=== PATIENT | male | born 1995 | race Caucasian/White ===

== ENCOUNTER 2017-08-17 20:46 | Inpatient (IN) | payer MEDICAID ==
[2015-06-19 09:33] VITALS: Ht 180.3 cm; Wt 83.9 kg
[~2017-08-17] VITALS: Ht 180.3 cm; Wt 83.9 kg
[~2017-08-17 20:46] MED LIST: ACET-1966 PO; AMOX500T10 PO; ARIP20TA11 PO; BUPR-126 PO; DIPH-740 IM; DIPH-740 PO; HYDR25CA83 PO; IBUP400T13 PO; LORA-1458 IM ONLY; LORA-1458 PO; MINO100C10 PO; MINO100C27 PO; MINO100T8 PO; MULT-1379 PO; OLAN10TA21 PO; OLAN10VI IM; OLAN20TA18 PO; [UNRECOGNIZED DRUG - CODE] XX
[2017-08-17] MEDS ORDERED: MAG HYD/AL HYD/SIMETH 30ML UDC PO PRN (22:05)
[2017-08-17] MEDS ORDERED: ACETAMINOPHEN 325 MG TAB PO PRN (22:05)
[2017-08-17] MEDS ORDERED: diphenhydrAMINE 50 MG/ML VIAL IM PRN (22:10)
[2017-08-17] MEDS ORDERED: OLANZapine 10 MG VIAL IM ONLY PRN (22:10)
[2017-08-17] MEDS ORDERED: LORazepam 2 MG/ML VIAL IM PRN (22:10)
[2017-08-17 22:29] VITALS: BP 122/78
[2017-08-17] MEDS: OLANZapine 5 MG TAB PO SCH (22:35)
[2017-08-18] MEDS: MULTIVITAMINS PO SCH (08:12)
[2017-08-18] MEDS: MINOCYCLINE HCL 100 MG CAP PO SCH (08:12)
[2017-08-18 10:10] VITALS: BP 119/66
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
--- NOTE | 2017-08-18 17:39 | HISTORY AND PHYSICAL ---
DATE OF ADMISSION: 08/18/2017 PRESENTING PROBLEM/CHIEF COMPLAINT Patient emergency detained after destroying property in his grandmother's home. HISTORY OF PRESENT ILLNESS This is a fairly well-known 22-year-old male who was notably just recently on the unit under similar circumstances from August 07 to August 10, 2017. Patient is living under the care of his grandmother and his mother at home. Patient at that time during that admission was exhibiting threatening behavior toward his caretakers. Patient was brought in voluntarily, escorted by police. Patient admitted, discharged back to home. Upon returning home patient continued to resume with his mother and his grandmother until police were summoned again to the patient's home by the grandmother, after patient engaging in destruction of property within the home. Patient again voluntarily escorted by police to the [facility] Room where he was evaluated, apparently in a state of psychosis and brought to Behavioral Health. Patient has a recent history of being diagnosed with borderline personality disorder and schizoaffective disorder. Patient's grandmother reports on the phone that he has not been taking his medications. Patient agrees to this, which included Zyprexa 20 mg p.o. at bedtime. At this time Behavioral Health staff were notified that patient would no longer be welcome in the home and patient is unable to care for himself independently. We will go forward with mental health hearing at this point to likely commit patient to [facility] if other suitable forms of placement cannot be found. Patient himself unable to give any current symptomatology other than stating that he was "partying" at home. Patient denying any other symptoms of illness currently. MENTAL HEALTH HISTORY, FAMILY PSYCHIATRIC HISTORY, MEDICAL, SOCIAL, LEGAL HISTORY AND SUBSTANCE ABUSE HISTORY Please see previous H and P on August 07, 2017 and other electronic records. PHYSICAL EXAMINATION GENERAL: Please see emergency room note. Notable for a 22-year-old male exhibiting bizarre behaviors in the emergency room, in no acute medical distress. VITAL SIGNS: At the time of admission, temperature 98.8, pulse 96, respiratory rate 20, blood pressure 136/74 and pulse oximetry 93 on room air. LABORATORY DATA CBC overall unremarkable. Chemistry panel unremarkable. TSH 1.32. Urinalysis notable for urobilinogen present. Toxicology screen negative for substances of abuse, and a nondetectable serum alcohol level. MENTAL STATUS EXAMINATION GENERAL APPEARANCE, BEHAVIOR AND ATTITUDE: This is a somewhat disheveled- appearing 22-year-old male. Psychomotor retardation evident during time of initial interview, turning later into psychomotor activation. Patient pacing, seen doing rocking behaviors, making poor eye contact. No periods of tearfulness. SPEECH: Poverty of speech noted. MOOD: Unable to fully describe. AFFECT: Minimally constricted. THOUGHT PROCESSES: No gross loose associations or flight of ideas could be elicited. THOUGHT CONTENT: Patient potentially suffering from auditory and/or visual hallucinations. Ideas of reference and thought broadcastings remain unknown. Delusions likely. Patient adamantly denying suicidal or homicidal ideation. SENSORIUM: Did appear clear. COGNITION: Alert and oriented to person, place, time, mostly to situation. MEMORY: Immediate, recent and remote estimated grossly intact, based on previous histories. INTELLIGENCE: Documented in the past as average to slightly below based on psychological testing done on previous admission. INSIGHT AND JUDGMENT: Considered grossly limited. Patient unable to care for self. ASSESSMENT This is a 22-year-old male who was recently on the unit under somewhat similar circumstances. Patient was given the opportunity to return home, where he continued to destroy propery. Patient now will not be allowed to return home. We will go forward with hearing at this time. Patient has been on multiple medications, inability to remain on medications left to his own accord. Will continue to address. DIAGNOSES PER DSM-V Borderline personality disorder as primary diagnosis. Schizoaffective disorder, bipolar type. Limitations of illness. Inability to care for self. PLAN 1. Admit to the unit. 2. Necessary precautions to be implemented. 3. Patient will participate in individual and group therapy to the best of his ability. 4. Medications to be administered. We will restart Zyprexa at this time. 5. Collateral information to be obtained. 6. Estimated length of stay unknown. Patient will likely be a candidate for placement in [facility]. [facility]
[2017-08-18 18:48] VITALS: BP 138/77
[2017-08-18] MEDS: OLANZapine 5 MG TAB PO SCH (19:21)
[2017-08-19 05:42] VITALS: BP 109/62
[2017-08-19] MEDS: MULTIVITAMINS PO SCH (08:17)
[2017-08-19] MEDS: MINOCYCLINE HCL 100 MG CAP PO SCH (08:17)
--- NOTE | 2017-08-19 10:55 | BHS Progress Note ---
[facility] - Subjective Progress Notes Subjective Patient noted to be rocking in a chair this morning. Mood unable to adequately describe. Patient appears to be responding to internal stimuli, with some laughter that appears out of nowhere. Appetite and sleep appear intact, will increase zyprexa tonight. Patient does continue to mention "voices" but unable to comment on content. Will have hearing today for 10 day extension. Patient no longer able to return home due to behaviors, and unable to care for self. Suicidal Ideation: None Homicidal Ideation: None [facility] - Objective Physical Exam Vital Signs Vital Signs Date Time Temp Pulse Resp B/P (MAP) Pulse Ox O2 Delivery O2 Flow Rate FiO2 08/19/17 05:42 98.0 42 15 109/62 (78) 96 Room Air Muscle Strength and Tone: WNL Gait and Station: Steady [facility] Medications Reviewed: Side Effects, Benefits of Medication, Risks Allergies Reviewed: Yes Mental Status Exam General Appearance: Casual, Well Groomed, No Good Eye Contact, Cooperative, Polite, Good Interaction, Unkept, No Tearful, Psychomotor Agitation (rocking behaviors), No Psychomotor Retardation, Bizarre Mannerisms, No Tics Speech: Clear, Spontaneous, Normal Rate, Normal Rhythm, Normal Volume, Normal Tone Mood: Other (Seems energized, paces around his bed or rocks in chair.) Affect: Flat, Withdrawn Thought Process: Goal Directed ("I am ready to go to the [facility] if that 's where everyone thinks they want to send me."), No Loose Associations, No Flight of Ideas Thought Content: No Suicidal Ideation, No Homicidal Ideation, Delusions (likely ), Auditory Halllucinations (ongoing), No Visual Hallucinations (Denies), No Thought Broadcasting, No Obsessions, No Compulsions Sensorium: Clear Cognition: Alert & Oriented-Person, Alert & Oriented-Place, Alert & Oriented- Time, No Ajhfg-Nmdntfzl-Vyikeegcl (partially) Memory: Immediate, Recent, Remote Intelligence: Average Insight Judgment: Poor (limited by illness) [facility] Assessment and Plan [id number] Encounter Date: Aug 19, 2017 Awck-tj-Fuay Encounter Time: 10:00 [facility] Plan: Necessary Precautions, Individual/Group Therapy, Admin/Titrate Meds, Educate Patient Tobacco Medications: Not Appropriate Condition Problems: (1) Schizoaffective disorder Status: Chronic (2) Personality disorder, unspecified Status: Chronic Assessment & Plan: likely cluster B and A. Condition 1. hearing today. 2. increase zyprexa to 15mg QHS. Problem Qualifiers (1) Schizoaffective disorder: Schizoaffective disorder type: bipolar Qualified Codes: F25.0 - Schizoaffective disorder, bipolar type NICHOLAS FERRARO MD Aug 19, 2017 10:55
[2017-08-19] MEDS ORDERED: WATER STERILE 10 ML VIAL IVP PRN (11:40)
[2017-08-19 14:23] VITALS: BP 133/80
[2017-08-19] MEDS: DOCUSATE SODIUM 100 MG CAP PO SCH (21:02)
[2017-08-19] MEDS: OLANZapine 5 MG TAB PO SCH (21:02)
[2017-08-19 23:20] VITALS: BP 141/95
[2017-08-20] MEDS: MINOCYCLINE HCL 100 MG CAP PO SCH (08:06)
[2017-08-20] MEDS: DOCUSATE SODIUM 100 MG CAP PO SCH ×2 (08:06→21:23)
[2017-08-20] MEDS: OMEGA-3 500 MG CAP PO SCH (08:07)
--- NOTE | 2017-08-20 08:59 | BHS Progress Note ---
[facility] - Subjective Progress Notes Subjective Patient continues rocking behavior in room, but remains mostly cooperative today , Patient reporting some potentially improved sleep on increased dose of zyprexa at night, will continue treatment, and encourage patient to take an active role in his treatment, Appetite good, no other concerns. Will continue same medications. Suicidal Ideation: None Homicidal Ideation: None [facility] - Objective Physical Exam Vital Signs Vital Signs Date Time Temp Pulse Resp B/P (MAP) Pulse Ox O2 Delivery O2 Flow Rate FiO2 08/19/17 23:20 98.5 95 141/95 (110) 94 Room Air 08/19/17 05:42 15 Muscle Strength and Tone: WNL Gait and Station: Steady [facility] Medications Reviewed: Side Effects, Benefits of Medication, Risks Allergies Reviewed: Yes Mental Status Exam General Appearance: Casual, Well Groomed, No Good Eye Contact, Cooperative, Polite, Good Interaction, Unkept, No Tearful, Psychomotor Agitation (rocking behaviors), No Psychomotor Retardation, Bizarre Mannerisms, No Tics Speech: Clear, Spontaneous, Normal Rate, Normal Rhythm, Normal Volume, Normal Tone Mood: Other (Seems energized, paces around his bed or rocks in chair.) Affect: Flat, Withdrawn Thought Process: Goal Directed ("I am ready to go to the [facility] if that 's where everyone thinks they want to send me."), No Loose Associations, No Flight of Ideas Thought Content: No Suicidal Ideation, No Homicidal Ideation, Delusions (likely ), Auditory Halllucinations (ongoing), No Visual Hallucinations (Denies), No Thought Broadcasting, No Obsessions, No Compulsions Sensorium: Clear Cognition: Alert & Oriented-Person, Alert & Oriented-Place, Alert & Oriented- Time, No Jwxpr-Cvzormml-Rhxrvqfxm (partially) Memory: Immediate, Recent, Remote Intelligence: Average Insight Judgment: Poor (limited by illness) [facility] Assessment and Plan Xefe-oj-Muiy Encounter Date: Aug 20, 2017 Zrdy-pd-Tzoi Encounter Time: 08:40 [facility] Plan: Necessary Precautions, Individual/Group Therapy, Admin/Titrate Meds, Educate Patient Tobacco Medications: Not Appropriate Condition Problems: (1) Schizoaffective disorder Status: Chronic (2) Personality disorder, unspecified Status: Chronic Assessment & Plan: likely cluster B and A. Condition 1. continue treatment. 2. no medication changes today. Problem Qualifiers (1) Schizoaffective disorder: Schizoaffective disorder type: bipolar Qualified Codes: F25.0 - Schizoaffective disorder, bipolar type NICHOLAS FERRARO MD Aug 20, 2017 08:59
[2017-08-20 13:05] VITALS: BP 110/75
[2017-08-20] MEDS: OLANZapine 5 MG TAB PO SCH (21:00)
[2017-08-21 00:17] VITALS: BP 127/87
[2017-08-21] MEDS: MINOCYCLINE HCL 100 MG CAP PO SCH (08:42)
[2017-08-21] MEDS: DOCUSATE SODIUM 100 MG CAP PO SCH ×2 (08:42→21:15)
[2017-08-21] MEDS: OMEGA-3 500 MG CAP PO SCH (08:42)
[2017-08-21 12:25] VITALS: BP 136/89
--- NOTE | 2017-08-21 14:49 | BHS Progress Note ---
[facility] - Subjective Progress Notes Subjective Pt seen in Unit C with team. Pt continues his rocking much of the time while awake. His affect is flat. He is cooperative, no aggression yesterday or today. Pt denies c/o's. He slept well last night, appetite is good. No EPS noted. Pt denies AH but he does seem internally preoccupied at times, also extremely withdrawn, does not initiate interaction with others, does not make spontaneous effort to self-care. Needs high level of support/supervision to complete ADL's. Suicidal Ideation: None Homicidal Ideation: None [facility] - Objective Physical Exam Vital Signs Vital Signs 08/21/17 12:25 Temp 99.9 Pulse 74 Resp 16 B/P (MAP) 136/89 (105) Pulse Ox 96 O2 Delivery Room Air Muscle Strength and Tone: WNL Gait and Station: Steady [facility] Medications Reviewed: Side Effects, Benefits of Medication, Risks Allergies Reviewed: Yes Mental Status Exam General Appearance: Casual, Cooperative, Unkept, No Tearful, Psychomotor Agitation (rocking behaviors), No Psychomotor Retardation, No Tics Speech: Clear, Spontaneous, Normal Rate, Normal Rhythm, Normal Volume Mood: Dysthmic/Depressed Affect: Flat, Withdrawn Thought Process: Organized Thought Content: No Suicidal Ideation, No Homicidal Ideation, Delusions (likely ), Auditory Halllucinations (likely), No Visual Hallucinations (Denies), No Thought Broadcasting, No Obsessions, No Compulsions Sensorium: Clear Cognition: Alert & Oriented-Person, Alert & Oriented-Place, Alert & Oriented- Time, Yfqgl-Bojmremy-Lgqengvce Memory: Immediate, Recent, Remote Intelligence: Average Insight Judgment: Poor (limited by illness) [facility] Assessment and Plan Acpt-en-Qagc Encounter Date: Aug 21, 2017 Dzim-gy-Oqyf Encounter Time: 10:03 [facility] Plan: Necessary Precautions, Individual/Group Therapy, Admin/Titrate Meds, Educate Patient Tobacco Medications: Not Appropriate Condition Problems: (1) Schizoaffective disorder Status: Chronic Assessment & Plan: Continue zyprexa 15 mg. Needs detention supervised placement after [facility]. Problem Qualifiers (1) Schizoaffective disorder: Schizoaffective disorder type: bipolar Qualified Codes: F25.0 - Schizoaffective disorder, bipolar type JACOBY PLUMMER MD Aug 21, 2017 14:49
[2017-08-21 17:00] VITALS: BP 129/73
[2017-08-21] MEDS: OLANZapine 5 MG TAB PO SCH (21:00)
[2017-08-22] MEDS ORDERED: LORazepam 1 MG TAB PO PRN (00:10)
[2017-08-22 01:06] VITALS: BP 130/82
[2017-08-22] MEDS: OMEGA-3 500 MG CAP PO SCH (08:08)
[2017-08-22] MEDS: DOCUSATE SODIUM 100 MG CAP PO SCH ×2 (08:08→21:19)
[2017-08-22] MEDS: MINOCYCLINE HCL 100 MG CAP PO SCH (08:08)
[2017-08-22 12:36] VITALS: BP 128/80
--- NOTE | 2017-08-22 16:24 | BHS Progress Note ---
[facility] - Subjective Progress Notes Subjective Pt seen in unit C. He continues his rocking behavior, is more energetic today, pacing about, laughing loudly to himself when he is alone in the room. Denies AH to me but is clearly internally preoccupied, very poor-to-no eye contact. Deneis oversedation. No EPS noted. Will increase zyprexa to 20 mg for continued psychosis-- this was his previous dose. Suicidal Ideation: None Homicidal Ideation: None [facility] - Objective Physical Exam Vital Signs Vital Signs 08/22/17 12:36 Temp 98.5 Pulse 61 Resp 16 B/P (MAP) 128/80 (96) Pulse Ox 97 O2 Delivery Room Air Muscle Strength and Tone: WNL Gait and Station: Steady [facility] Medications Reviewed: Side Effects, Benefits of Medication, Risks Allergies Reviewed: Yes Mental Status Exam General Appearance: Cooperative, Unkept, No Tearful, Psychomotor Agitation ( rocking behaviors), No Psychomotor Retardation, No Tics Speech: Clear, Spontaneous, Normal Rhythm, Normal Volume Mood: Other (labile) Affect: Flat, Withdrawn, Other (labile-- flat alternating with bizarre laughter ) Thought Process: Other (tangential) Thought Content: No Suicidal Ideation, No Homicidal Ideation, Delusions, Auditory Halllucinations (internally preoccupied, laughing to himself), No Visual Hallucinations (Denies), No Thought Broadcasting, No Obsessions, No Compulsions Sensorium: Clear Cognition: Alert & Oriented-Person, Alert & Oriented-Place, Alert & Oriented- Time, Wjyyk-Fqonyrsm-Kkzrqiuxu Memory: Immediate, Recent, Remote Intelligence: Average Insight Judgment: Poor (limited by illness) [facility] Assessment and Plan Thnr-mx-Ahww Encounter Date: Aug 22, 2017 Mwjc-hn-Rbme Encounter Time: 10:30 [facility] Plan: Necessary Precautions, Individual/Group Therapy, Admin/Titrate Meds, Educate Patient Tobacco Medications: Not Appropriate Condition Problems: (1) Schizoaffective disorder Status: Chronic Problem Qualifiers (1) Schizoaffective disorder: Schizoaffective disorder type: bipolar Qualified Codes: F25.0 - Schizoaffective disorder, bipolar type JACOBY PLUMMER MD Aug 22, 2017 16:24
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
[2017-08-22 18:20] VITALS: BP 134/86
[2017-08-22] MEDS: OLANZapine 5 MG TAB PO SCH (21:00)
[2017-08-22 21:23] VITALS: BP 132/83
[2017-08-23] MEDS: OMEGA-3 500 MG CAP PO SCH (08:16)
[2017-08-23] MEDS: MINOCYCLINE HCL 100 MG CAP PO SCH (08:16)
[2017-08-23] MEDS: DOCUSATE SODIUM 100 MG CAP PO SCH ×2 (08:16→20:31)
--- NOTE | 2017-08-23 09:13 | BHS Progress Note ---
[facility] - Subjective Progress Notes Subjective Patient's family contacted this AM, at 0845 Patient continues to refrain from violent or destructive behavior on the unit. Slept well on increased zyprexa at night. appetite good, Patient up and active early this AM, and does not appear to be over-medicated on current dosing. Will schedule hearing this week , for commitment to [facility]. Patient cannot return home to live with his grandmother, and mother, and does not possess the ability to live independently. Will continue same medications for now. Suicidal Ideation: None Homicidal Ideation: None [facility] - Objective Physical Exam Vital Signs Vital Signs Date Time Temp Pulse Resp B/P (MAP) Pulse Ox O2 Delivery O2 Flow Rate FiO2 08/22/17 21:23 98.7 79 132/83 (99) 98 Room Air 08/22/17 18:20 16 Muscle Strength and Tone: WNL Gait and Station: Steady [facility] Medications Reviewed: Side Effects, Benefits of Medication, Risks Allergies Reviewed: Yes Mental Status Exam General Appearance: Cooperative, Unkept, No Tearful, Psychomotor Agitation ( rocking behaviors), No Psychomotor Retardation, Bizarre Mannerisms (at times), No Tics Speech: Clear, Spontaneous, Normal Rhythm, Normal Volume, Delayed (delayed response at times) Mood: Other (labile, unable to fully express mood.) Affect: Flat, Withdrawn, Other (labile-- flat alternating with bizarre laughter ) Thought Process: Other (tangential) Thought Content: No Suicidal Ideation, No Homicidal Ideation, Delusions, Auditory Halllucinations (internally preoccupied, laughing to himself), No Visual Hallucinations (Denies), No Thought Broadcasting, No Obsessions, No Compulsions Sensorium: Clear Cognition: Alert & Oriented-Person, Alert & Oriented-Place, Alert & Oriented- Time, Wrdse-Llcupahg-Xvbjkxbxz Memory: Immediate, Recent, Remote Intelligence: Average (to slightly below) Insight Judgment: Poor (grossly limited by illness) [facility] Assessment and Plan Ghuw-xi-Lvhj Encounter Date: Aug 23, 2017 Ujxu-uk-Zrym Encounter Time: 08:45 [facility] Plan: Necessary Precautions, Individual/Group Therapy, Admin/Titrate Meds, Educate Patient Tobacco Medications: Not Appropriate Condition Problems: (1) Schizoaffective disorder Status: Chronic (2) Personality disorder, unspecified Status: Chronic Assessment & Plan: likely cluster B and A. Condition 1. continue treatment. 2. no medication changes. 3. hearing this week. Problem Qualifiers (1) Schizoaffective disorder: Schizoaffective disorder type: bipolar Qualified Codes: F25.0 - Schizoaffective disorder, bipolar type NICHOLAS FERRARO MD Aug 23, 2017 09:13
[2017-08-23 12:35] VITALS: BP 119/61
[2017-08-23] MEDS: OLANZapine 5 MG TAB PO SCH (20:31)
[2017-08-23 21:14] VITALS: BP 115/61
[2017-08-24 05:36] VITALS: BP 113/54
[2017-08-24] MEDS: MINOCYCLINE HCL 100 MG CAP PO SCH (08:04)
[2017-08-24] MEDS: OMEGA-3 500 MG CAP PO SCH (08:04)
[2017-08-24] MEDS: DOCUSATE SODIUM 100 MG CAP PO SCH ×2 (08:04→21:06)
--- NOTE | 2017-08-24 11:48 | BHS Progress Note ---
S - Subjective Progress Notes Subjective Patient seen in room this AM, notably still cleaner floor of room as compared to yesterday, which had snack food spread about room. Patient making poor eye contact but denies any concerns, does not appear to be overmedicated, and was noted to have slept well. Will continue same medications today,, as we await commitment hearing, patient remains cooperative, and we will ponder having patient move around more in the general population. Patient has no complaints today. Rocking behavior continues. Suicidal Ideation: None Homicidal Ideation: None [facility] - Objective Physical Exam Vital Signs Vital Signs Date Time Temp Pulse Resp B/P (MAP) Pulse Ox O2 Delivery O2 Flow Rate FiO2 08/24/17 05:36 98.0 42 15 113/54 (73) 96 Room Air Muscle Strength and Tone: WNL Gait and Station: Steady [facility] Medications Reviewed: Side Effects, Benefits of Medication, Risks Allergies Reviewed: Yes Mental Status Exam General Appearance: No Good Eye Contact, Cooperative, Polite, Unkept, No Tearful, Psychomotor Agitation (rocking behaviors), No Psychomotor Retardation, Bizarre Mannerisms (at times), No Tics Speech: Clear, Spontaneous, Normal Rhythm, Normal Volume, Delayed (delayed response at times) Mood: Other (labile, unable to fully express mood.) Affect: Flat, Withdrawn, Other (labile-- flat alternating with bizarre laughter ) Thought Process: Other (tangential) Thought Content: No Suicidal Ideation, No Homicidal Ideation, Delusions, Auditory Halllucinations (internally preoccupied, laughing to himself), No Visual Hallucinations (Denies), No Thought Broadcasting, No Obsessions, No Compulsions Sensorium: Clear Cognition: Alert & Oriented-Person, Alert & Oriented-Place, Alert & Oriented- Time, Vzcju-Dqlaorcj-Krfpdqlop Memory: Immediate, Recent, Remote Intelligence: Average (to slightly below) Insight Judgment: Poor (grossly limited by illness) [facility] Assessment and Plan Yjjx-xi-[id number] Encounter Date: Aug 24, 2017 Fxcx-je-Dyuo Encounter Time: 11:00 [facility] Plan: Necessary Precautions, Individual/Group Therapy, Admin/Titrate Meds, Educate Patient Tobacco Medications: Not Appropriate Condition Problems: (1) Schizoaffective disorder Status: Chronic (2) Personality disorder, unspecified Status: Chronic Assessment & Plan: likely cluster B and A. Condition 1. will continue treatment. 2. no medication changes today. 3. commitment hearing on Wednesday Problem Qualifiers (1) Schizoaffective disorder: Schizoaffective disorder type: bipolar Qualified Codes: F25.0 - Schizoaffective disorder, bipolar type NICHOLAS FERRARO MD Aug 24, 2017 11:48
[2017-08-24 20:32] VITALS: BP 134/90
[2017-08-24] MEDS: OLANZapine 5 MG TAB PO SCH (21:00)
[2017-08-25 05:55] VITALS: BP 99/50
[2017-08-25] MEDS: OMEGA-3 500 MG CAP PO SCH (08:38)
[2017-08-25] MEDS: MINOCYCLINE HCL 100 MG CAP PO SCH (08:38)
[2017-08-25] MEDS: DOCUSATE SODIUM 100 MG CAP PO SCH ×2 (08:38→20:43)
--- NOTE | 2017-08-25 09:01 | BHS Progress Note ---
[facility] - Subjective Progress Notes Subjective Patient continues to be cooperative on the unit, notably directing some frustration at his Mother on last visit. Patient denies any problems today, will continue same medications. Appetite and sleep good, no other concerns today. Suicidal Ideation: None Homicidal Ideation: None [facility] - Objective Physical Exam Vital Signs Vital Signs Date Time Temp Pulse Resp B/P (MAP) Pulse Ox O2 Delivery O2 Flow Rate FiO2 08/25/17 05:55 97.5 51 15 99/50 (66) 96 Room Air Muscle Strength and Tone: WNL Gait and Station: Steady [facility] Medications Reviewed: Side Effects, Benefits of Medication, Risks Allergies Reviewed: Yes Mental Status Exam General Appearance: No Good Eye Contact, Cooperative, Unkept, No Tearful, Psychomotor Agitation (rocking behaviors), No Psychomotor Retardation, No Tics Speech: Clear, Spontaneous, Normal Rhythm, Normal Volume, Delayed (at times) Mood: Other (labile) Affect: Flat, Withdrawn, Other (labile-- flat alternating with bizarre laughter at times) Thought Process: Other (tangential) Thought Content: No Suicidal Ideation, No Homicidal Ideation, Delusions, Auditory Halllucinations (internally preoccupied, laughing to himself), No Visual Hallucinations (Denies), No Thought Broadcasting, No Obsessions, No Compulsions Sensorium: Clear Cognition: Alert & Oriented-Person, Alert & Oriented-Place, Alert & Oriented- Time, Joacz-Aleizntc-Pgvmcixbt Memory: Immediate, Recent, Remote Intelligence: Average Insight Judgment: Poor (limited by illness) [facility] Assessment and Plan Bcrj-cw-Ooik Encounter Date: Aug 25, 2017 Yudm-bb-Wkqa Encounter Time: 08:40 [facility] Plan: Necessary Precautions, Individual/Group Therapy, Admin/Titrate Meds, Educate Patient Tobacco Medications: Not Appropriate Condition Problems: (1) Schizoaffective disorder Status: Chronic (2) Personality disorder, unspecified Status: Chronic Assessment & Plan: likely cluster B and A. Condition 1. continue treatment. 2. hearing on Wednesday for commitment to [facility] Problem Qualifiers (1) Schizoaffective disorder: Schizoaffective disorder type: bipolar Qualified Codes: F25.0 - Schizoaffective disorder, bipolar type NICHOLAS FERRARO MD Aug 25, 2017 09:01
[2017-08-25] MEDS: OLANZapine 5 MG TAB PO SCH (20:43)
[2017-08-25 21:54] VITALS: BP 143/80
[2017-08-26 05:50] VITALS: BP 96/59
[2017-08-26] MEDS: OMEGA-3 500 MG CAP PO SCH (08:39)
[2017-08-26] MEDS: DOCUSATE SODIUM 100 MG CAP PO SCH ×2 (08:39→21:00)
[2017-08-26] MEDS: MINOCYCLINE HCL 100 MG CAP PO SCH (08:39)
--- NOTE | 2017-08-26 13:30 | BHS Progress Note ---
[facility] - Subjective Progress Notes Subjective Patient demonstrating more difficulty with getting up and out of bed this AM. Patient mostly cooperative and eventually getting up and remaining out of bed with some strong encouragement. Patient unable or refusing to give any details of symptomatology, continues to rock, and sporadic verbalizations continue, some minimal fist pounding as well. Appears to sleep well, appetite good. Suicidal Ideation: None Homicidal Ideation: None [facility] - Objective Physical Exam Vital Signs Vital Signs Date Time Temp Pulse Resp B/P (MAP) Pulse Ox O2 Delivery O2 Flow Rate FiO2 08/26/17 05:50 97.6 48 15 96/59 (71) 96 Room Air Muscle Strength and Tone: WNL Gait and Station: Steady [facility] Medications Reviewed: Side Effects, Benefits of Medication, Risks Allergies Reviewed: Yes Mental Status Exam General Appearance: No Good Eye Contact, Cooperative, Unkept, No Tearful, Psychomotor Agitation (rocking behaviors), No Psychomotor Retardation, No Tics Speech: Clear, Spontaneous, Normal Rhythm, Normal Volume, Delayed (at times) Mood: Other (labile) Affect: Flat, Withdrawn, Other (labile-- flat alternating with bizarre laughter at times) Thought Process: Other (tangential) Thought Content: No Suicidal Ideation, No Homicidal Ideation, Delusions, Auditory Halllucinations (internally preoccupied, laughing to himself), No Visual Hallucinations (Denies), No Thought Broadcasting, No Obsessions, No Compulsions Sensorium: Clear Cognition: Alert & Oriented-Person, Alert & Oriented-Place, Alert & Oriented- Time, Zpeah-Dhuohcyv-Mkmbwlvgi Memory: Immediate, Recent, Remote Intelligence: Average Insight Judgment: Poor (limited by illness) [facility] Assessment and Plan Zzec-py-Ekze Encounter Date: Aug 26, 2017 Vdtr-ja-Fjfk Encounter Time: 10:00 [facility] Plan: Necessary Precautions, Individual/Group Therapy, Admin/Titrate Meds, Educate Patient Tobacco Medications: Not Appropriate Condition Problems: (1) Schizoaffective disorder Status: Chronic (2) Personality disorder, unspecified Status: Chronic Condition 1. continue treatment. 2. no medication changes. 3. hearing tomorrow. Problem Qualifiers (1) Schizoaffective disorder: Schizoaffective disorder type: bipolar Qualified Codes: F25.0 - Schizoaffective disorder, bipolar type NICHOLAS FERRARO MD Aug 26, 2017 13:30
[2017-08-26 14:01] VITALS: BP 128/87
[2017-08-26] MEDS: OLANZapine 5 MG TAB PO SCH (21:00)
[2017-08-26 21:46] VITALS: BP 126/84
[2017-08-26] MEDS ORDERED: LORazepam 1 MG TAB PO ONE (22:25)
[2017-08-26] MEDS ORDERED: diphenhydrAMINE 25 MG CAP PO ONE (22:25)
[2017-08-26] MEDS ORDERED: OLANZapine 5 MG TAB PO ONE (22:25)
[2017-08-27] MEDS ORDERED: OLANZapine ZYDIS ODT 5MG TABDP ONE (07:54)
[2017-08-27] MEDS ORDERED: OLANZapine ZYDIS ODT 5MG TABDP PO ONE (07:55)
[2017-08-27] MEDS: MINOCYCLINE HCL 100 MG CAP PO SCH (08:00)
[2017-08-27] MEDS: OMEGA-3 500 MG CAP PO SCH (08:00)
[2017-08-27] MEDS: DOCUSATE SODIUM 100 MG CAP PO SCH ×2 (08:00→21:47)
[2017-08-27 08:24] LABS: PLATELET COUNT, AUTOMATED 196 K/uL (150-450)
--- NOTE | 2017-08-27 08:35 | EKG ---
FACILITY: PATIENT NAME: ANTOINETTE WALLACE : [id number] MR: [id number] V: [id number] EXAM DATE: ORDERING PHYSICIAN: NICHOLAS FERRARO TECHNOLOGIST: Test Reason : QT Blood Pressure : / mmHG Vent. Rate : 071 BPM Atrial Rate : 071 BPM P-R Int : 152 ms QRS Dur : 108 ms QT Int : 372 ms P-R-T Axes : 059 062 050 degrees QTc Int : 404 ms Normal sinus rhythm with sinus arrhythmia Septal infarct , age undetermined Abnormal ECG When compared with ECG of 18-JUN-2015 14:30, Previous ECG has undetermined rhythm, needs review Confirmed by EDGARDO LAO ([id number]) on 08/27/2017 1:52:49 PM Referred By: RONAN Confirmed By:EDGARDO LAO
[2017-08-27 12:25] VITALS: BP 133/79
--- NOTE | 2017-08-27 15:07 | BHS Progress Note ---
[facility] - Subjective Progress Notes Subjective Pt seen in Unit C at 11 am, spoke with pt's grandmother during treatment team, and attended mental health court to testify for 10 day hearing. Pt was committed to the [facility]. Pt declined the opportunity to attend his mental health court hearing. Last night pt became aggressive in his room and kicked a hole in the wall, today telling me he was mad at the voices for saying "something that was not true." He says he thinks his voices are worse now than when he came in. Continues to be isolative, poor eye contact, rocking, responding to internal stimuli, laughing hysterically for unknown reason at times. Spoke with pt and also with his grandmother about trying lithium augmentation for persistent psychosis-- pt and grandmother agree to lithium trial. He understands he will need periodic blood tests to monitor kidney and thyroid function and lithium level. Suicidal Ideation: None Homicidal Ideation: None [facility] - Objective Physical Exam Vital Signs Vital Signs 08/27/17 12:25 Temp 99.4 Pulse 108 Resp 16 B/P (MAP) 133/79 (97) Pulse Ox 97 O2 Delivery Room Air Muscle Strength and Tone: WNL Gait and Station: Steady [facility] Medications Reviewed: Side Effects, Benefits of Medication, Risks Allergies Reviewed: Yes Mental Status Exam General Appearance: No Good Eye Contact, Unkept, No Tearful, Psychomotor Agitation (rocking behaviors), No Psychomotor Retardation, No Tics Speech: Clear, Spontaneous, Normal Rhythm, Normal Volume, Delayed (at times) Mood: Other (labile) Affect: Flat, Withdrawn, Other (labile-- flat alternating with bizarre laughter at times) Thought Process: Other (tangential) Thought Content: No Suicidal Ideation, No Homicidal Ideation, Delusions, Auditory Halllucinations (internally preoccupied, laughing to himself), No Visual Hallucinations (Denies), No Thought Broadcasting, No Obsessions, No Compulsions Sensorium: Clear Cognition: Alert & Oriented-Person, Alert & Oriented-Place, Alert & Oriented- Time, Fmaxz-Zvaoczxa-Pqcvjdoyg Memory: Immediate, Recent, Remote Intelligence: Average Insight Judgment: Poor (limited by illness) Result Diagram: 08/27/17 0749 08/27/[address] [facility] Assessment and Plan Koic-bu-Hbct Encounter Date: Aug 27, 2017 Zwwe-sa-Owfy Encounter Time: 11:00 [facility] Plan: Necessary Precautions, Individual/Group Therapy, Admin/Titrate Meds, Educate Patient Tobacco Medications: Not Appropriate Condition Problems: (1) Schizoaffective disorder Status: Chronic Problem Qualifiers (1) Schizoaffective disorder: Schizoaffective disorder type: bipolar Qualified Codes: F25.0 - Schizoaffective disorder, bipolar type JACOBY PLUMMER MD Aug 27, 2017 15:07
[2017-08-27 18:10] VITALS: BP 139/83
[2017-08-27] MEDS: OLANZapine 5 MG TAB PO SCH (21:45)
[2017-08-27] MEDS: LITHIUM CARBONATE 300 MG TABCR PO SCH (21:47)
[2017-08-28 06:35] VITALS: BP 98/61
[2017-08-28] MEDS: OMEGA-3 500 MG CAP PO SCH (07:49)
[2017-08-28] MEDS: DOCUSATE SODIUM 100 MG CAP PO SCH ×2 (07:49→20:56)
[2017-08-28] MEDS: MINOCYCLINE HCL 100 MG CAP PO SCH (07:49)
--- NOTE | 2017-08-28 08:55 | BHS Progress Note ---
[facility] - Subjective Progress Notes Subjective "Good." Reports slept well. Reports voices always there. Denies command-however they do talk to him. Rates current anger level a 5. Suicidal Ideation: None Homicidal Ideation: None [facility] - Objective Physical Exam Vital Signs vital signs Vital Signs 08/27/17 08/28/17 18:10 06:35 Temp 98.0 Pulse 60 Resp 16 B/P (MAP) 98/61 (73) Pulse Ox 97 O2 Delivery Room Air Muscle Strength and Tone: WNL Gait and Station: Steady [facility] Medications Reviewed: Side Effects, Benefits of Medication, Risks Allergies Reviewed: Yes Mental Status Exam General Appearance: No Good Eye Contact, Unkept, No Tearful, Psychomotor Agitation (rocking behaviors), No Psychomotor Retardation, No Tics Speech: Clear, Spontaneous, Normal Rhythm, Normal Volume, Delayed (at times) Mood: Other (labile) Affect: Flat, Withdrawn, Other (labile-- flat alternating with bizarre laughter at times) Thought Process: Other (tangential) Thought Content: No Suicidal Ideation, No Homicidal Ideation, Delusions, Auditory Halllucinations (internally preoccupied, laughing to himself), No Visual Hallucinations (Denies), No Thought Broadcasting, No Obsessions, No Compulsions Sensorium: Clear Cognition: Alert & Oriented-Person, Alert & Oriented-Place, Alert & Oriented- Time, Bchii-Tbxmjgyx-Ofwabhrgr Memory: Immediate, Recent, Remote Intelligence: Average Insight Judgment: Poor (limited by illness) Result Diagram: 08/27/17 0749 08/27/17 0749 [facility] Assessment and Plan [id number]-[id number] Encounter Date: Aug 28, 2017 Tvbo-dt-Xbyr Encounter Time: 08:20 [facility] Plan: Necessary Precautions, Individual/Group Therapy, Admin/Titrate Meds, Educate Patient Tobacco Medications: Not Appropriate Condition Problems: TOYA CORREIA NP Aug 28, 2017 08:55
[2017-08-28 13:15] VITALS: BP 130/60
[2017-08-28 19:38] VITALS: BP 124/90
[2017-08-28] MEDS: OLANZapine 5 MG TAB PO SCH (20:55)
[2017-08-28] MEDS: LITHIUM CARBONATE 300 MG TABCR PO SCH (20:55)
[2017-08-29 06:31] VITALS: BP 124/70
[2017-08-29] MEDS: DOCUSATE SODIUM 100 MG CAP PO SCH ×2 (08:02→21:00)
[2017-08-29] MEDS: MINOCYCLINE HCL 100 MG CAP PO SCH (08:02)
[2017-08-29] MEDS: OMEGA-3 500 MG CAP PO SCH (08:02)
[2017-08-29 12:10] VITALS: BP 118/80
[2017-08-29 18:45] VITALS: BP 145/101
[2017-08-29] MEDS: LITHIUM CARBONATE 300 MG TABCR PO SCH (21:00)
[2017-08-29] MEDS: OLANZapine 5 MG TAB PO SCH (21:00)
[2017-08-30 05:11] VITALS: BP 113/64
[2017-08-30] MEDS: OMEGA-3 500 MG CAP PO SCH (08:03)
[2017-08-30] MEDS: MINOCYCLINE HCL 100 MG CAP PO SCH (08:03)
[2017-08-30] MEDS: DOCUSATE SODIUM 100 MG CAP PO SCH ×2 (08:03→21:00)
--- NOTE | 2017-08-30 09:11 | BHS Progress Note ---
[facility] - Subjective Progress Notes Subjective Patient remains largely the same throughout the weekend. Nurse reports questioning whether patient cheeked his medications last night and disposed of them. Patient rocking this AM. No further destructive behaviors in the room last 24 hours. Appetite good, no other concerns. Suicidal Ideation: None Homicidal Ideation: None [facility] - Objective Physical Exam Vital Signs Vital Signs Date Time Temp Pulse Resp B/P (MAP) Pulse Ox O2 Delivery O2 Flow Rate FiO2 08/30/17 05:11 98.2 49 15 113/64 (80) 95 Room Air Hematology Test 08/27/17 07:49 Red Blood Count 5.46 M/uL (4.00-5.60) Mean Corpuscular Volume 84.6 fL (80.0-96.0) Mean Corpuscular Hemoglobin 28.7 pg (26.0-33.0) Mean Corpuscular Hemoglobin Concent 33.9 g/dL (32.0-36.0) Red Cell Distribution Width 16.8 % (11.5-14.5) Mean Platelet Volume 8.3 fL (7.2-11.1) Neutrophils (%) (Auto) 41.9 % (39.4-72.5) Lymphocytes (%) (Auto) 46.3 % (17.6-49.6) Monocytes (%) (Auto) 11.5 % (4.1-12.4) Eosinophils (%) (Auto) 0.0 % (0.4-6.7) Basophils (%) (Auto) 0.3 % (0.3-1.4) Nucleated RBC Relative Count (auto) 0.0 /100WBC Neutrophils # (Auto) 2.6 K/uL (2.0-7.4) Lymphocytes # (Auto) 2.8 K/uL (1.3-3.6) Monocytes # (Auto) 0.7 K/uL (0.3-1.0) Eosinophils # (Auto) 0.0 K/uL (0.0-0.5) Basophils # (Auto) 0.0 K/uL (0.0-0.1) Nucleated RBC Absolute Count (auto) 0.00 K/uL Sodium Level 140 mmol/L (137-145) Potassium Level 4.3 mmol/L (3.5-5.0) Chloride Level 105 mmol/L (98-107) Carbon Dioxide Level 28 mmol/L (22-30) Blood Urea Nitrogen 8 mg/dl (9-21) Creatinine 0.90 mg/dl (0.66-1.25) Glomerular Filtration Rate Calc > 60.0 Random Glucose 76 mg/dl (75-110) Calcium Level 9.3 mg/dl (8.4-10.2) Total Bilirubin 0.5 mg/dl (0.2-1.3) Aspartate Amino Transf (AST/SGOT) 23 U/L (0-35) Alanine Aminotransferase (ALT/SGPT) 32 U/L (0-56) Alkaline Phosphatase 87 U/L (0-126) Total Protein 6.4 gm/dl (6.3-8.2) Albumin 3.4 g/dl (3.5-5.0) Chemistry Test 08/27/17 07:49 White Blood Count 6.1 k/uL (4.5-11.0) Red Blood Count 5.46 M/uL (4.00-5.60) Hemoglobin 15.6 g/dL (14.0-18.0) Hematocrit 46.2 % (42.0-52.0) Mean Corpuscular Volume 84.6 fL (80.0-96.0) Mean Corpuscular Hemoglobin 28.7 pg (26.0-33.0) Mean Corpuscular Hemoglobin Concent 33.9 g/dL (32.0-36.0) Red Cell Distribution Width 16.8 % (11.5-14.5) Platelet Count 196 K/uL (150-450) Mean Platelet Volume 8.3 fL (7.2-11.1) Neutrophils (%) (Auto) 41.9 % (39.4-72.5) Lymphocytes (%) (Auto) 46.3 % (17.6-49.6) Monocytes (%) (Auto) 11.5 % (4.1-12.4) Eosinophils (%) (Auto) 0.0 % (0.4-6.7) Basophils (%) (Auto) 0.3 % (0.3-1.4) Nucleated RBC Relative Count (auto) 0.0 /100WBC Neutrophils # (Auto) 2.6 K/uL (2.0-7.4) Lymphocytes # (Auto) 2.8 K/uL (1.3-3.6) Monocytes # (Auto) 0.7 K/uL (0.3-1.0) Eosinophils # (Auto) 0.0 K/uL (0.0-0.5) Basophils # (Auto) 0.0 K/uL (0.0-0.1) Nucleated RBC Absolute Count (auto) 0.00 K/uL Glomerular Filtration Rate Calc > 60.0 Calcium Level 9.3 mg/dl (8.4-10.2) Total Bilirubin 0.5 mg/dl (0.2-1.3) Aspartate Amino Transf (AST/SGOT) 23 U/L (0-35) Alanine Aminotransferase (ALT/SGPT) 32 U/L (0-56) Alkaline Phosphatase 87 U/L (0-126) Total Protein 6.4 gm/dl (6.3-8.2) Albumin 3.4 g/dl (3.5-5.0) Muscle Strength and Tone: WNL Gait and Station: Steady [facility] Medications Reviewed: Side Effects, Benefits of Medication, Risks Allergies Reviewed: Yes Mental Status Exam General Appearance: No Good Eye Contact, Unkept, No Tearful, Psychomotor Agitation (rocking behaviors), No Psychomotor Retardation, No Tics Speech: Clear, Spontaneous, Normal Rhythm, Normal Volume, Delayed (at times) Mood: Other (labile) Affect: Flat, Withdrawn, Other (labile-- flat alternating with bizarre laughter at times) Thought Process: Other (tangential) Thought Content: No Suicidal Ideation, No Homicidal Ideation, Delusions, Auditory Halllucinations (internally preoccupied, laughing to himself), No Visual Hallucinations (Denies), No Thought Broadcasting, No Obsessions, No Compulsions Sensorium: Clear Cognition: Alert & Oriented-Person, Alert & Oriented-Place, Alert & Oriented- Time, Fastj-Vnstyrvu-Kqwtwnjpn Memory: Immediate, Recent, Remote Intelligence: Average Insight Judgment: Poor (limited by illness) Result Diagram: 08/27/17 0749 08/27/17 0749 [facility] Assessment and Plan [id number]-[id number] Encounter Date: Aug 30, 2017 Tcsu-ay-Zzdh Encounter Time: 08:40 [facility] Plan: Necessary Precautions, Individual/Group Therapy, Admin/Titrate Meds, Educate Patient Tobacco Medications: Not Appropriate Condition Problems: (1) Schizoaffective disorder Status: Chronic (2) Personality disorder, unspecified Status: Chronic Condition 1. continue current medication regimen. 2. monitor for cheeking behaviors. Problem Qualifiers (1) Schizoaffective disorder: Schizoaffective disorder type: bipolar Qualified Codes: F25.0 - Schizoaffective disorder, bipolar type NICHOLAS FERRARO MD Aug 30, 2017 09:11
[2017-08-30] MEDS: LITHIUM CARBONATE 300 MG TABCR PO SCH (21:00)
[2017-08-30] MEDS: OLANZapine 5 MG TAB PO SCH (21:00)
[2017-08-30 22:11] VITALS: BP 137/85
[2017-08-31 04:57] VITALS: BP 109/69
[2017-08-31] MEDS: OMEGA-3 500 MG CAP PO SCH ×2 (08:21→08:51)
[2017-08-31] MEDS: DOCUSATE SODIUM 100 MG CAP PO SCH ×3 (08:21→20:48)
[2017-08-31] MEDS: MINOCYCLINE HCL 100 MG CAP PO SCH ×2 (08:21→08:51)
--- NOTE | 2017-08-31 09:11 | BHS Progress Note ---
BHS - Subjective Progress Notes Subjective Patient refusing medications last PM and again this AM. Patient likely was cheeking medication the night before last. Patient exhibiting borderline personality symptoms, and in absence of medications, negative behaviors will likely increase. Patient has damaged wall in room, and was to be transferred to skilled nursing, but apparently skilled nursing has no room. Will continue to work with this patient, to encourage him to resume medications. Appetite okay, variable at times. sleep impaired, do to avoidance of medications. Patient notably cooperative this AM, and able to exit bed and take a shower with minimal prompting. Suicidal Ideation: None Homicidal Ideation: None BHS - Objective Physical Exam Vital Signs Current Medications Medications (Trade) Dose Ordered Sig/Jovi Route PRN Reason Start Time Stop Time Status Last Admin Dose Admin Acetaminophen (Tylenol(*)325 Mg Tab (Or Equiv)) 650 mg Q4H PRN PO HEADACHE 08/17/17 22:05 09/16/17 22:04 Al Hydrox/Mg Hydrox/Simethicone (Maalox(*) 30 ml Udcup (Or Equiv)) 30 ml Q4H PRN PO DYSPEPSIA 08/17/17 22:05 09/16/17 22:04 Multivitamins (Thera-M Enhanced Tab (Or Equiv)) 1 each QDAY PO 08/18/17 09:00 08/19/17 09:15 DC 08/19/17 08:17 Olanzapine (zyPREXA (OR EQUIV)) 10 mg QHS PO 08/17/17 22:35 08/19/17 10:01 DC 08/18/17 19:21 Minocycline HCl (Minocin 100 Mg Cap (Or Equiv)) 100 mg DAILY PO 08/18/17 09:00 09/01/17 08:59 08/31/17 08:21 Diphenhydramine HCl (Benadryl(*) 50 Mg/ml Vial (Or Equiv)) 50 mg Q6H PRN IM SEVERE AGITATION 08/17/17 22:10 09/16/17 22:09 Lorazepam (Ativan(*) 2 Mg/ ml Vial (Or Equiv)) 2 mg Q6H PRN IM SEVER AGITATION 08/17/17 22:10 09/30/17 22:09 Olanzapine (zyPREXA(*) (OR EQUIV)) 10 mg Q6H PRN IM ONLY SEVERE AGITATION 08/17/17 22:10 09/16/17 22:09 Olanzapine (zyPREXA (OR EQUIV)) 15 mg QHS PO 08/19/17 21:00 08/22/17 13:42 DC 08/21/17 21:00 Krzus-8-[id number] Ethyl Esters (Fish Oil 500 Mg Capsule) 1,000 mg QDAY PO 08/20/17 09:00 09/19/17 08:59 08/31/17 08:21 Docusate Sodium (Colace(*) 100 Mg Cap (Or Equiv)) 100 mg BID PO 08/19/17 21:00 09/18/17 20:59 08/31/17 08:21 Sterile Water (Sterile Water Injection(*) 10 ml Vial) 10 ml PRN PRN IVP AGITATION 08/19/17 11:40 09/18/17 11:39 Lorazepam (Ativan(*) 1 Mg Tab (Or Equiv)) 1 mg Q6H PRN PO ANXIETY 08/22/17 00:10 09/05/17 00:09 08/26/17 19:44 Olanzapine (zyPREXA (OR EQUIV)) 20 mg QHS PO 08/22/17 21:00 09/21/17 20:59 08/29/17 21:00 Diphenhydramine HCl (Benadryl(*) 25 Mg Cap (Or Equiv)) 50 mg ONCE ONCE PO 08/26/17 22:25 08/26/17 22:35 DC 08/26/17 22:25 Olanzapine (zyPREXA (OR EQUIV)) 10 mg ONCE ONCE PO 08/26/17 22:25 08/26/17 22:35 DC 08/26/17 22:25 Lorazepam (Ativan(*) 1 Mg Tab (Or Equiv)) 1 mg ONCE ONCE PO 08/26/17 22:25 08/26/17 22:35 DC 08/26/17 22:25 Olanzapine (zyPREXA ZYDIS ODT(*) 5 MG TABDP (OR EQUIV)) 10 mg ONCE ONCE PO 08/27/17 07:55 08/27/17 07:58 DC 08/27/17 08:00 Olanzapine (zyPREXA ZYDIS ODT(*) 5 MG TABDP (OR EQUIV)) 10 mg STK-MED ONCE .ROUTE 08/27/17 07:54 08/27/17 08:00 DC [place] Carbonate (Lithobid 300 Mg Tabcr (Or Equiv)) 600 mg QHS PO 08/27/17 21:00 09/26/17 20:59 08/29/17 21:00 Hematology Test 08/27/17 07:49 Red Blood Count 5.46 M/uL (4.00-5.60) Mean Corpuscular Volume 84.6 fL (80.0-96.0) Mean Corpuscular Hemoglobin 28.7 pg (26.0-33.0) Mean Corpuscular Hemoglobin Concent 33.9 g/dL (32.0-36.0) Red Cell Distribution Width 16.8 % (11.5-14.5) Mean Platelet Volume 8.3 fL (7.2-11.1) Neutrophils (%) (Auto) 41.9 % (39.4-72.5) Lymphocytes (%) (Auto) 46.3 % (17.6-49.6) Monocytes (%) (Auto) 11.5 % (4.1-12.4) Eosinophils (%) (Auto) 0.0 % (0.4-6.7) Basophils (%) (Auto) 0.3 % (0.3-1.4) Nucleated RBC Relative Count (auto) 0.0 /100WBC Neutrophils # (Auto) 2.6 K/uL (2.0-7.4) Lymphocytes # (Auto) 2.8 K/uL (1.3-3.6) Monocytes # (Auto) 0.7 K/uL (0.3-1.0) Eosinophils # (Auto) 0.0 K/uL (0.0-0.5) Basophils # (Auto) 0.0 K/uL (0.0-0.1) Nucleated RBC Absolute Count (auto) 0.00 K/uL Sodium Level 140 mmol/L (137-145) Potassium Level 4.3 mmol/L (3.5-5.0) Chloride Level 105 mmol/L (98-107) Carbon Dioxide Level 28 mmol/L (22-30) Blood Urea Nitrogen 8 mg/dl (9-21) Creatinine 0.90 mg/dl (0.66-1.25) Glomerular Filtration Rate Calc > 60.0 Random Glucose 76 mg/dl (75-110) Calcium Level 9.3 mg/dl (8.4-10.2) Total Bilirubin 0.5 mg/dl (0.2-1.3) Aspartate Amino Transf (AST/SGOT) 23 U/L (0-35) Alanine Aminotransferase (ALT/SGPT) 32 U/L (0-56) Alkaline Phosphatase 87 U/L (0-126) Total Protein 6.4 gm/dl (6.3-8.2) Albumin 3.4 g/dl (3.5-5.0) Chemistry Test 08/27/17 07:49 White Blood Count 6.1 k/uL (4.5-11.0) Red Blood Count 5.46 M/uL (4.00-5.60) Hemoglobin 15.6 g/dL (14.0-18.0) Hematocrit 46.2 % (42.0-52.0) Mean Corpuscular Volume 84.6 fL (80.0-96.0) Mean Corpuscular Hemoglobin 28.7 pg (26.0-33.0) Mean Corpuscular Hemoglobin Concent 33.9 g/dL (32.0-36.0) Red Cell Distribution Width 16.8 % (11.5-14.5) Platelet Count 196 K/uL (150-450) Mean Platelet Volume 8.3 fL (7.2-11.1) Neutrophils (%) (Auto) 41.9 % (39.4-72.5) Lymphocytes (%) (Auto) 46.3 % (17.6-49.6) Monocytes (%) (Auto) 11.5 % (4.1-12.4) Eosinophils (%) (Auto) 0.0 % (0.4-6.7) Basophils (%) (Auto) 0.3 % (0.3-1.4) Nucleated RBC Relative Count (auto) 0.0 /100WBC Neutrophils # (Auto) 2.6 K/uL (2.0-7.4) Lymphocytes # (Auto) 2.8 K/uL (1.3-3.6) Monocytes # (Auto) 0.7 K/uL (0.3-1.0) Eosinophils # (Auto) 0.0 K/uL (0.0-0.5) Basophils # (Auto) 0.0 K/uL (0.0-0.1) Nucleated RBC Absolute Count (auto) 0.00 K/uL Glomerular Filtration Rate Calc > 60.0 Calcium Level 9.3 mg/dl (8.4-10.2) Total Bilirubin 0.5 mg/dl (0.2-1.3) Aspartate Amino Transf (AST/SGOT) 23 U/L (0-35) Alanine Aminotransferase (ALT/SGPT) 32 U/L (0-56) Alkaline Phosphatase 87 U/L (0-126) Total Protein 6.4 gm/dl (6.3-8.2) Albumin 3.4 g/dl (3.5-5.0) Vital Signs Date Time Temp Pulse Resp B/P (MAP) Pulse Ox O2 Delivery O2 Flow Rate FiO2 08/31/17 04:57 98.1 47 15 109/69 (82) 98 Room Air Muscle Strength and Tone: WNL Gait and Station: Steady [facility] Medications Reviewed: Side Effects, Benefits of Medication, Risks Allergies Reviewed: Yes Mental Status Exam General Appearance: No Good Eye Contact, Unkept, No Tearful, Psychomotor Agitation (rocking behaviors), No Psychomotor Retardation, No Tics Speech: Clear, Spontaneous, Normal Rhythm, Normal Volume, Delayed (at times) Mood: Other (labile) Affect: Flat, Withdrawn, Other (labile-- flat alternating with bizarre laughter at times) Thought Process: Other (tangential) Thought Content: No Suicidal Ideation, No Homicidal Ideation, Delusions, Auditory Halllucinations (internally preoccupied, laughing to himself), No Visual Hallucinations (Denies), No Thought Broadcasting, No Obsessions, No Compulsions Sensorium: Clear Cognition: Alert & Oriented-Person, Alert & Oriented-Place, Alert & Oriented- Time, Ldvdl-Scpnaabe-Fuhbdoall Memory: Immediate, Recent, Remote Intelligence: Average Insight Judgment: Poor (limited by illness) Result Diagram: 08/27/17 0749 08/27/17 0749 [facility] Assessment and Plan Losy-ng-Hbex Encounter Date: Aug 31, 2017 Ejjg-yr-Ouba Encounter Time: 08:40 [facility] Plan: Necessary Precautions, Individual/Group Therapy, Admin/Titrate Meds, Educate Patient Tobacco Medications: Not Appropriate Condition Problems: (1) Schizoaffective disorder Status: Chronic (2) Personality disorder, unspecified Status: Chronic Condition 1. encourage medication compliance. 2. check for cell availability, to repair room. Problem Qualifiers (1) Schizoaffective disorder: Schizoaffective disorder type: bipolar Qualified Codes: F25.0 - Schizoaffective disorder, bipolar type NICHOLAS FERRARO MD Aug 31, 2017 09:11
[2017-08-31] MEDS: OLANZapine 5 MG TAB PO SCH (20:49)
[2017-08-31] MEDS: LITHIUM CARBONATE 300 MG TABCR PO SCH (20:49)
[2017-08-31 21:49] VITALS: BP 132/83
[2017-09-01 04:19] VITALS: BP 137/76
[2017-09-01] MEDS: DOCUSATE SODIUM 100 MG CAP PO SCH ×2 (08:33→21:00)
[2017-09-01] MEDS: OMEGA-3 500 MG CAP PO SCH (08:33)
[2017-09-01 09:23] VITALS: BP 110/74
--- NOTE | 2017-09-01 12:06 | BHS Progress Note ---
BHS - Subjective Progress Notes Subjective Patient continues to refuse all medications, Patient not sleeping well in absence of zyprexa, will encourage patient to restart medications. Patient angry with this provider yesterday, regarding not having his wishes met, and mocking this provider in a manner more consistent with borderline personality disorder. Appetite good. Patient's negative behavior likely to escalate. Suicidal Ideation: None Homicidal Ideation: None BHS - Objective Physical Exam Vital Signs Vital Signs Date Time Temp Pulse Resp B/P (MAP) Pulse Ox O2 Delivery O2 Flow Rate FiO2 09/01/17 09:23 98.8 87 110/74 (86) 99 Room Air 09/01/17 04:19 16 Hematology Test 08/27/17 07:49 Red Blood Count 5.46 M/uL (4.00-5.60) Mean Corpuscular Volume 84.6 fL (80.0-96.0) Mean Corpuscular Hemoglobin 28.7 pg (26.0-33.0) Mean Corpuscular Hemoglobin Concent 33.9 g/dL (32.0-36.0) Red Cell Distribution Width 16.8 % (11.5-14.5) Mean Platelet Volume 8.3 fL (7.2-11.1) Neutrophils (%) (Auto) 41.9 % (39.4-72.5) Lymphocytes (%) (Auto) 46.3 % (17.6-49.6) Monocytes (%) (Auto) 11.5 % (4.1-12.4) Eosinophils (%) (Auto) 0.0 % (0.4-6.7) Basophils (%) (Auto) 0.3 % (0.3-1.4) Nucleated RBC Relative Count (auto) 0.0 /100WBC Neutrophils # (Auto) 2.6 K/uL (2.0-7.4) Lymphocytes # (Auto) 2.8 K/uL (1.3-3.6) Monocytes # (Auto) 0.7 K/uL (0.3-1.0) Eosinophils # (Auto) 0.0 K/uL (0.0-0.5) Basophils # (Auto) 0.0 K/uL (0.0-0.1) Nucleated RBC Absolute Count (auto) 0.00 K/uL Sodium Level 140 mmol/L (137-145) Potassium Level 4.3 mmol/L (3.5-5.0) Chloride Level 105 mmol/L (98-107) Carbon Dioxide Level 28 mmol/L (22-30) Blood Urea Nitrogen 8 mg/dl (9-21) Creatinine 0.90 mg/dl (0.66-1.25) Glomerular Filtration Rate Calc > 60.0 Random Glucose 76 mg/dl (75-110) Calcium Level 9.3 mg/dl (8.4-10.2) Total Bilirubin 0.5 mg/dl (0.2-1.3) Aspartate Amino Transf (AST/SGOT) 23 U/L (0-35) Alanine Aminotransferase (ALT/SGPT) 32 U/L (0-56) Alkaline Phosphatase 87 U/L (0-126) Total Protein 6.4 gm/dl (6.3-8.2) Albumin 3.4 g/dl (3.5-5.0) Chemistry Test 08/27/17 07:49 White Blood Count 6.1 k/uL (4.5-11.0) Red Blood Count 5.46 M/uL (4.00-5.60) Hemoglobin 15.6 g/dL (14.0-18.0) Hematocrit 46.2 % (42.0-52.0) Mean Corpuscular Volume 84.6 fL (80.0-96.0) Mean Corpuscular Hemoglobin 28.7 pg (26.0-33.0) Mean Corpuscular Hemoglobin Concent 33.9 g/dL (32.0-36.0) Red Cell Distribution Width 16.8 % (11.5-14.5) Platelet Count 196 K/uL (150-450) Mean Platelet Volume 8.3 fL (7.2-11.1) Neutrophils (%) (Auto) 41.9 % (39.4-72.5) Lymphocytes (%) (Auto) 46.3 % (17.6-49.6) Monocytes (%) (Auto) 11.5 % (4.1-12.4) Eosinophils (%) (Auto) 0.0 % (0.4-6.7) Basophils (%) (Auto) 0.3 % (0.3-1.4) Nucleated RBC Relative Count (auto) 0.0 /100WBC Neutrophils # (Auto) 2.6 K/uL (2.0-7.4) Lymphocytes # (Auto) 2.8 K/uL (1.3-3.6) Monocytes # (Auto) 0.7 K/uL (0.3-1.0) Eosinophils # (Auto) 0.0 K/uL (0.0-0.5) Basophils # (Auto) 0.0 K/uL (0.0-0.1) Nucleated RBC Absolute Count (auto) 0.00 K/uL Glomerular Filtration Rate Calc > 60.0 Calcium Level 9.3 mg/dl (8.4-10.2) Total Bilirubin 0.5 mg/dl (0.2-1.3) Aspartate Amino Transf (AST/SGOT) 23 U/L (0-35) Alanine Aminotransferase (ALT/SGPT) 32 U/L (0-56) Alkaline Phosphatase 87 U/L (0-126) Total Protein 6.4 gm/dl (6.3-8.2) Albumin 3.4 g/dl (3.5-5.0) Hematology Test 08/27/17 07:49 Red Blood Count 5.46 M/uL (4.00-5.60) Mean Corpuscular Volume 84.6 fL (80.0-96.0) Mean Corpuscular Hemoglobin 28.7 pg (26.0-33.0) Mean Corpuscular Hemoglobin Concent 33.9 g/dL (32.0-36.0) Red Cell Distribution Width 16.8 % (11.5-14.5) Mean Platelet Volume 8.3 fL (7.2-11.1) Neutrophils (%) (Auto) 41.9 % (39.4-72.5) Lymphocytes (%) (Auto) 46.3 % (17.6-49.6) Monocytes (%) (Auto) 11.5 % (4.1-12.4) Eosinophils (%) (Auto) 0.0 % (0.4-6.7) Basophils (%) (Auto) 0.3 % (0.3-1.4) Nucleated RBC Relative Count (auto) 0.0 /100WBC Neutrophils # (Auto) 2.6 K/uL (2.0-7.4) Lymphocytes # (Auto) 2.8 K/uL (1.3-3.6) Monocytes # (Auto) 0.7 K/uL (0.3-1.0) Eosinophils # (Auto) 0.0 K/uL (0.0-0.5) Basophils # (Auto) 0.0 K/uL (0.0-0.1) Nucleated RBC Absolute Count (auto) 0.00 K/uL Sodium Level 140 mmol/L (137-145) Potassium Level 4.3 mmol/L (3.5-5.0) Chloride Level 105 mmol/L (98-107) Carbon Dioxide Level 28 mmol/L (22-30) Blood Urea Nitrogen 8 mg/dl (9-21) Creatinine 0.90 mg/dl (0.66-1.25) Glomerular Filtration Rate Calc > 60.0 Random Glucose 76 mg/dl (75-110) Calcium Level 9.3 mg/dl (8.4-10.2) Total Bilirubin 0.5 mg/dl (0.2-1.3) Aspartate Amino Transf (AST/SGOT) 23 U/L (0-35) Alanine Aminotransferase (ALT/SGPT) 32 U/L (0-56) Alkaline Phosphatase 87 U/L (0-126) Total Protein 6.4 gm/dl (6.3-8.2) Albumin 3.4 g/dl (3.5-5.0) Chemistry Test 08/27/17 07:49 White Blood Count 6.1 k/uL (4.5-11.0) Red Blood Count 5.46 M/uL (4.00-5.60) Hemoglobin 15.6 g/dL (14.0-18.0) Hematocrit 46.2 % (42.0-52.0) Mean Corpuscular Volume 84.6 fL (80.0-96.0) Mean Corpuscular Hemoglobin 28.7 pg (26.0-33.0) Mean Corpuscular Hemoglobin Concent 33.9 g/dL (32.0-36.0) Red Cell Distribution Width 16.8 % (11.5-14.5) Platelet Count 196 K/uL (150-450) Mean Platelet Volume 8.3 fL (7.2-11.1) Neutrophils (%) (Auto) 41.9 % (39.4-72.5) Lymphocytes (%) (Auto) 46.3 % (17.6-49.6) Monocytes (%) (Auto) 11.5 % (4.1-12.4) Eosinophils (%) (Auto) 0.0 % (0.4-6.7) Basophils (%) (Auto) 0.3 % (0.3-1.4) Nucleated RBC Relative Count (auto) 0.0 /100WBC Neutrophils # (Auto) 2.6 K/uL (2.0-7.4) Lymphocytes # (Auto) 2.8 K/uL (1.3-3.6) Monocytes # (Auto) 0.7 K/uL (0.3-1.0) Eosinophils # (Auto) 0.0 K/uL (0.0-0.5) Basophils # (Auto) 0.0 K/uL (0.0-0.1) Nucleated RBC Absolute Count (auto) 0.00 K/uL Glomerular Filtration Rate Calc > 60.0 Calcium Level 9.3 mg/dl (8.4-10.2) Total Bilirubin 0.5 mg/dl (0.2-1.3) Aspartate Amino Transf (AST/SGOT) 23 U/L (0-35) Alanine Aminotransferase (ALT/SGPT) 32 U/L (0-56) Alkaline Phosphatase 87 U/L (0-126) Total Protein 6.4 gm/dl (6.3-8.2) Albumin 3.4 g/dl (3.5-5.0) Muscle Strength and Tone: WNL Gait and Station: Steady [facility] Medications Reviewed: Side Effects, Benefits of Medication, Risks Allergies Reviewed: Yes Mental Status Exam General Appearance: No Well Groomed, No Good Eye Contact, Unkept, No Tearful, Psychomotor Agitation (rocking behaviors, pacing), No Psychomotor Retardation, No Tics Speech: Clear, Spontaneous, Normal Rhythm, Normal Volume, Delayed (at times) Mood: Other (labile) Affect: Flat, Withdrawn, Other (labile-- flat alternating with bizarre laughter at times) Thought Process: Other (tangential) Thought Content: No Suicidal Ideation, No Homicidal Ideation, Delusions, Auditory Halllucinations (internally preoccupied, laughing to himself), No Visual Hallucinations (Denies), No Thought Broadcasting, No Obsessions, No Compulsions Sensorium: Clear Cognition: Alert & Oriented-Person, Alert & Oriented-Place, Alert & Oriented- Time, Hcwgu-Hwuxmjzy-Lrwycqiav Memory: Immediate, Recent, Remote Intelligence: Average Insight Judgment: Poor (limited by illness) [facility] Assessment and Plan Piht-od-Bbtn Encounter Date: Sep 01, 2017 Pxfm-vf-[id number] Encounter Time: 11:30 [facility] Plan: Necessary Precautions, Individual/Group Therapy, Admin/Titrate Meds, Educate Patient Tobacco Medications: Not Appropriate Condition Problems: (1) Schizoaffective disorder Status: Chronic (2) Personality disorder, unspecified Status: Chronic Assessment & Plan: behaviors consistent with cluster B personality disorder Condition 1. encourage medication compliance. 2. await transfer to [facility] facility Problem Qualifiers (1) Schizoaffective disorder: Schizoaffective disorder type: bipolar Qualified Codes: F25.0 - Schizoaffective disorder, bipolar type NICHOLAS FERRARO MD Sep 01, 2017 12:06
[2017-09-01] MEDS: OLANZapine 5 MG TAB PO SCH (21:00)
[2017-09-01] MEDS: LITHIUM CARBONATE 300 MG TABCR PO SCH (21:00)
[2017-09-01 22:14] VITALS: BP 130/98
[2017-09-02 08:54] VITALS: BP 112/66
[2017-09-02] MEDS: DOCUSATE SODIUM 100 MG CAP PO SCH ×2 (09:00→21:00)
[2017-09-02] MEDS: OMEGA-3 500 MG CAP PO SCH (09:00)
--- NOTE | 2017-09-02 12:04 | BHS Progress Note ---
BHS - Subjective Progress Notes Subjective Patient remains in a state of refusal of medications, but cooperative to the point that forced medications are not needed. Patient noted to be masturbating in the evening, and rocking behaviors and apparent responses to internal stimuli continue in this Patient who likely suffers from psychotic disorder combined with personality disorder. Patient historically demonstrates largely unpredictable behaviors, and can display engage in much destructive behaviors, which in the absence of medications would be likely to return. Patient continues to await [facility]. Suicidal Ideation: None Homicidal Ideation: None BHS - Objective Physical Exam Vital Signs Vital Signs Date Time Temp Pulse Resp B/P (MAP) Pulse Ox O2 Delivery O2 Flow Rate FiO2 09/02/17 08:54 98.7 68 112/66 (81) 97 Room Air 09/01/17 04:19 16 Hematology Test 08/27/17 07:49 Red Blood Count 5.46 M/uL (4.00-5.60) Mean Corpuscular Volume 84.6 fL (80.0-96.0) Mean Corpuscular Hemoglobin 28.7 pg (26.0-33.0) Mean Corpuscular Hemoglobin Concent 33.9 g/dL (32.0-36.0) Red Cell Distribution Width 16.8 % (11.5-14.5) Mean Platelet Volume 8.3 fL (7.2-11.1) Neutrophils (%) (Auto) 41.9 % (39.4-72.5) Lymphocytes (%) (Auto) 46.3 % (17.6-49.6) Monocytes (%) (Auto) 11.5 % (4.1-12.4) Eosinophils (%) (Auto) 0.0 % (0.4-6.7) Basophils (%) (Auto) 0.3 % (0.3-1.4) Nucleated RBC Relative Count (auto) 0.0 /100WBC Neutrophils # (Auto) 2.6 K/uL (2.0-7.4) Lymphocytes # (Auto) 2.8 K/uL (1.3-3.6) Monocytes # (Auto) 0.7 K/uL (0.3-1.0) Eosinophils # (Auto) 0.0 K/uL (0.0-0.5) Basophils # (Auto) 0.0 K/uL (0.0-0.1) Nucleated RBC Absolute Count (auto) 0.00 K/uL Sodium Level 140 mmol/L (137-145) Potassium Level 4.3 mmol/L (3.5-5.0) Chloride Level 105 mmol/L (98-107) Carbon Dioxide Level 28 mmol/L (22-30) Blood Urea Nitrogen 8 mg/dl (9-21) Creatinine 0.90 mg/dl (0.66-1.25) Glomerular Filtration Rate Calc > 60.0 Random Glucose 76 mg/dl (75-110) Calcium Level 9.3 mg/dl (8.4-10.2) Total Bilirubin 0.5 mg/dl (0.2-1.3) Aspartate Amino Transf (AST/SGOT) 23 U/L (0-35) Alanine Aminotransferase (ALT/SGPT) 32 U/L (0-56) Alkaline Phosphatase 87 U/L (0-126) Total Protein 6.4 gm/dl (6.3-8.2) Albumin 3.4 g/dl (3.5-5.0) Chemistry Test 08/27/17 07:49 White Blood Count 6.1 k/uL (4.5-11.0) Red Blood Count 5.46 M/uL (4.00-5.60) Hemoglobin 15.6 g/dL (14.0-18.0) Hematocrit 46.2 % (42.0-52.0) Mean Corpuscular Volume 84.6 fL (80.0-96.0) Mean Corpuscular Hemoglobin 28.7 pg (26.0-33.0) Mean Corpuscular Hemoglobin Concent 33.9 g/dL (32.0-36.0) Red Cell Distribution Width 16.8 % (11.5-14.5) Platelet Count 196 K/uL (150-450) Mean Platelet Volume 8.3 fL (7.2-11.1) Neutrophils (%) (Auto) 41.9 % (39.4-72.5) Lymphocytes (%) (Auto) 46.3 % (17.6-49.6) Monocytes (%) (Auto) 11.5 % (4.1-12.4) Eosinophils (%) (Auto) 0.0 % (0.4-6.7) Basophils (%) (Auto) 0.3 % (0.3-1.4) Nucleated RBC Relative Count (auto) 0.0 /100WBC Neutrophils # (Auto) 2.6 K/uL (2.0-7.4) Lymphocytes # (Auto) 2.8 K/uL (1.3-3.6) Monocytes # (Auto) 0.7 K/uL (0.3-1.0) Eosinophils # (Auto) 0.0 K/uL (0.0-0.5) Basophils # (Auto) 0.0 K/uL (0.0-0.1) Nucleated RBC Absolute Count (auto) 0.00 K/uL Glomerular Filtration Rate Calc > 60.0 Calcium Level 9.3 mg/dl (8.4-10.2) Total Bilirubin 0.5 mg/dl (0.2-1.3) Aspartate Amino Transf (AST/SGOT) 23 U/L (0-35) Alanine Aminotransferase (ALT/SGPT) 32 U/L (0-56) Alkaline Phosphatase 87 U/L (0-126) Total Protein 6.4 gm/dl (6.3-8.2) Albumin 3.4 g/dl (3.5-5.0) Muscle Strength and Tone: WNL Gait and Station: Steady [facility] Medications Reviewed: Side Effects, Benefits of Medication, Risks Allergies Reviewed: Yes Mental Status Exam General Appearance: No Well Groomed, No Good Eye Contact, Unkept, No Tearful, Psychomotor Agitation (rocking behaviors, pacing), No Psychomotor Retardation, No Tics Speech: Clear, Spontaneous, Normal Rhythm, Normal Volume, Delayed (at times) Mood: Other (labile) Affect: Flat, Withdrawn, Other (labile-- flat alternating with bizarre laughter at times) Thought Process: Other (tangential) Thought Content: No Suicidal Ideation, No Homicidal Ideation, Delusions, Auditory Halllucinations (internally preoccupied, laughing to himself), No Visual Hallucinations (Denies), No Thought Broadcasting, No Obsessions, No Compulsions Sensorium: Clear Cognition: Alert & Oriented-Person, Alert & Oriented-Place, Alert & Oriented- Time, Qseua-Gzxqnrwa-Bbznejjfo Memory: Immediate, Recent, Remote Intelligence: Average Insight Judgment: Poor (limited by illness) [facility] Assessment and Plan Hqrf-gw-Yisp Encounter Date: Sep 02, 2017 [id number] Encounter Time: 11:45 S Plan: Necessary Precautions, Individual/Group Therapy, Admin/Titrate Meds, Educate Patient Tobacco Medications: Not Appropriate Condition Problems: (1) Schizoaffective disorder Status: Chronic (2) Personality disorder, unspecified Status: Chronic Assessment & Plan: behaviors consistent with cluster B personality disorder Condition 1. continue to encourage medication compliance. 2. await state hospital transfer, Problem Qualifiers (1) Schizoaffective disorder: Schizoaffective disorder type: bipolar Qualified Codes: F25.0 - Schizoaffective disorder, bipolar type NICHOLAS FERRARO MD Sep 02, 2017 12:04
[2017-09-02] MEDS: OLANZapine 5 MG TAB PO SCH (20:52)
[2017-09-02] MEDS: LITHIUM CARBONATE 300 MG TABCR PO SCH (20:53)
[2017-09-02 21:23] VITALS: BP 116/92
[2017-09-03 06:29] VITALS: BP 126/64
--- NOTE | 2017-09-03 08:53 | BHS Progress Note ---
BHS - Subjective Progress Notes Subjective Patient continues to refuse medications, but interestingly appears to have slept well last night, and went to sleep earlier than the past few days. Patient not engaging in behaviors that would result in forced medications for chemical restraint. Will continue to encourage medication compliance, appetite recently seems intact. No other concerns. Suicidal Ideation: None Homicidal Ideation: None BHS - Objective Physical Exam Vital Signs Vital Signs Date Time Temp Pulse Resp B/P (MAP) Pulse Ox O2 Delivery O2 Flow Rate FiO2 09/03/17 06:29 98.5 48 126/64 (84) 96 Room Air 09/01/17 04:19 16 Hematology Test 08/27/17 07:49 Red Blood Count 5.46 M/uL (4.00-5.60) Mean Corpuscular Volume 84.6 fL (80.0-96.0) Mean Corpuscular Hemoglobin 28.7 pg (26.0-33.0) Mean Corpuscular Hemoglobin Concent 33.9 g/dL (32.0-36.0) Red Cell Distribution Width 16.8 % (11.5-14.5) Mean Platelet Volume 8.3 fL (7.2-11.1) Neutrophils (%) (Auto) 41.9 % (39.4-72.5) Lymphocytes (%) (Auto) 46.3 % (17.6-49.6) Monocytes (%) (Auto) 11.5 % (4.1-12.4) Eosinophils (%) (Auto) 0.0 % (0.4-6.7) Basophils (%) (Auto) 0.3 % (0.3-1.4) Nucleated RBC Relative Count (auto) 0.0 /100WBC Neutrophils # (Auto) 2.6 K/uL (2.0-7.4) Lymphocytes # (Auto) 2.8 K/uL (1.3-3.6) Monocytes # (Auto) 0.7 K/uL (0.3-1.0) Eosinophils # (Auto) 0.0 K/uL (0.0-0.5) Basophils # (Auto) 0.0 K/uL (0.0-0.1) Nucleated RBC Absolute Count (auto) 0.00 K/uL Sodium Level 140 mmol/L (137-145) Potassium Level 4.3 mmol/L (3.5-5.0) Chloride Level 105 mmol/L (98-107) Carbon Dioxide Level 28 mmol/L (22-30) Blood Urea Nitrogen 8 mg/dl (9-21) Creatinine 0.90 mg/dl (0.66-1.25) Glomerular Filtration Rate Calc > 60.0 Random Glucose 76 mg/dl (75-110) Calcium Level 9.3 mg/dl (8.4-10.2) Total Bilirubin 0.5 mg/dl (0.2-1.3) Aspartate Amino Transf (AST/SGOT) 23 U/L (0-35) Alanine Aminotransferase (ALT/SGPT) 32 U/L (0-56) Alkaline Phosphatase 87 U/L (0-126) Total Protein 6.4 gm/dl (6.3-8.2) Albumin 3.4 g/dl (3.5-5.0) Chemistry Test 08/27/17 07:49 White Blood Count 6.1 k/uL (4.5-11.0) Red Blood Count 5.46 M/uL (4.00-5.60) Hemoglobin 15.6 g/dL (14.0-18.0) Hematocrit 46.2 % (42.0-52.0) Mean Corpuscular Volume 84.6 fL (80.0-96.0) Mean Corpuscular Hemoglobin 28.7 pg (26.0-33.0) Mean Corpuscular Hemoglobin Concent 33.9 g/dL (32.0-36.0) Red Cell Distribution Width 16.8 % (11.5-14.5) Platelet Count 196 K/uL (150-450) Mean Platelet Volume 8.3 fL (7.2-11.1) Neutrophils (%) (Auto) 41.9 % (39.4-72.5) Lymphocytes (%) (Auto) 46.3 % (17.6-49.6) Monocytes (%) (Auto) 11.5 % (4.1-12.4) Eosinophils (%) (Auto) 0.0 % (0.4-6.7) Basophils (%) (Auto) 0.3 % (0.3-1.4) Nucleated RBC Relative Count (auto) 0.0 /100WBC Neutrophils # (Auto) 2.6 K/uL (2.0-7.4) Lymphocytes # (Auto) 2.8 K/uL (1.3-3.6) Monocytes # (Auto) 0.7 K/uL (0.3-1.0) Eosinophils # (Auto) 0.0 K/uL (0.0-0.5) Basophils # (Auto) 0.0 K/uL (0.0-0.1) Nucleated RBC Absolute Count (auto) 0.00 K/uL Glomerular Filtration Rate Calc > 60.0 Calcium Level 9.3 mg/dl (8.4-10.2) Total Bilirubin 0.5 mg/dl (0.2-1.3) Aspartate Amino Transf (AST/SGOT) 23 U/L (0-35) Alanine Aminotransferase (ALT/SGPT) 32 U/L (0-56) Alkaline Phosphatase 87 U/L (0-126) Total Protein 6.4 gm/dl (6.3-8.2) Albumin 3.4 g/dl (3.5-5.0) Muscle Strength and Tone: WNL Gait and Station: Steady [facility] Medications Reviewed: Side Effects, Benefits of Medication, Risks Allergies Reviewed: Yes Mental Status Exam General Appearance: No Well Groomed, No Good Eye Contact, Unkept, No Tearful, Psychomotor Agitation (rocking behaviors, pacing), No Psychomotor Retardation, No Bizarre Mannerisms, No Tics Speech: Clear, Spontaneous, Normal Rhythm, Normal Volume, Delayed (at times) Mood: Other (labile) Affect: Flat, Withdrawn, Other (labile-- flat alternating with bizarre laughter at times) Thought Process: Other (tangential) Thought Content: No Suicidal Ideation, No Homicidal Ideation, Delusions, Auditory Halllucinations (internally preoccupied, laughing to himself), No Visual Hallucinations (Denies), No Thought Broadcasting, No Obsessions, No Compulsions Sensorium: Clear Cognition: Alert & Oriented-Person, Alert & Oriented-Place, Alert & Oriented- Time, Pajbn-Esyvcwvk-Ngiuxnzbk Memory: Immediate, Recent, Remote Intelligence: Average Insight Judgment: Poor (limited by illness) [facility] Assessment and Plan [id number] Encounter Date: Sep 03, 2017 [id number] Encounter Time: 08:40 [facility] Plan: Necessary Precautions, Individual/Group Therapy, Admin/Titrate Meds, Educate Patient Tobacco Medications: Not Appropriate Condition Problems: (1) Schizoaffective disorder Status: Chronic (2) Personality disorder, unspecified Status: Chronic Assessment & Plan: behaviors consistent with cluster B personality disorder Condition 1. continue to encourage medication compliance. 2. look into placement options. Problem Qualifiers (1) Schizoaffective disorder: Schizoaffective disorder type: bipolar Qualified Codes: F25.0 - Schizoaffective disorder, bipolar type NICHOLAS FERRARO MD Sep 03, 2017 08:53
[2017-09-03] MEDS: DOCUSATE SODIUM 100 MG CAP PO SCH (09:00)
[2017-09-03] MEDS: OMEGA-3 500 MG CAP PO SCH (09:00)
[2017-09-03 13:04] VITALS: BP 123/82
[2017-09-03] MEDS ORDERED: DOCU-416 PO (14:11)
[2017-09-03] MEDS ORDERED: OMEG-11 PO (14:12)
[2017-09-03] MEDS ORDERED: LITH300T5 PO (14:12)
--- NOTE | 2017-09-05 18:27 | BHS Progress Note ---
[facility] - Subjective Progress Notes Subjective This note is entered for visit with occurred on 08/29/17. "Im' fine." Client denies anger. Denies SI or HI. Reports that voices are alwasys there. Suicidal Ideation: None Homicidal Ideation: None [facility] - Objective Physical Exam Muscle Strength and Tone: WNL Gait and Station: Steady [facility] Medications Reviewed: Side Effects, Benefits of Medication, Risks Allergies Reviewed: Yes Mental Status Exam General Appearance: No Well Groomed, No Good Eye Contact, Unkept, No Tearful, Psychomotor Agitation (rocking behaviors, pacing), No Psychomotor Retardation, No Bizarre Mannerisms, No Tics Speech: Clear, Spontaneous, Normal Rhythm, Normal Volume, Delayed (at times) Mood: Other (labile) Affect: Flat, Withdrawn, Other (labile-- flat alternating with bizarre laughter at times) Thought Process: Other (tangential) Thought Content: No Suicidal Ideation, No Homicidal Ideation, Delusions, Auditory Halllucinations (internally preoccupied, laughing to himself), No Visual Hallucinations (Denies), No Thought Broadcasting, No Obsessions, No Compulsions Sensorium: Clear Cognition: Alert & Oriented-Person, Alert & Oriented-Place, Alert & Oriented- Time, Hgfja-Zpsathdz-Pamxfeawr Memory: Immediate, Recent, Remote Intelligence: Average Insight Judgment: Poor (limited by illness) [facility] Assessment and Plan Qibq-[id number] Encounter Date: Aug 29, 2017 Zhpv-[id number] Encounter Time: 09:30 [facility] Plan: Necessary Precautions, Individual/Group Therapy, Admin/Titrate Meds, Educate Patient Tobacco Medications: Not Appropriate Condition Problems: TOYA CORREIA NP Sep 05, 2017 18:27
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
== END 2017-09-03 16:00 | DRG 885 ==
LOC: BHS 20:46
PROVIDERS: ADMIT Psychiatry & Neurology Psychiatry; ATTEND Psychiatry & Neurology Psychiatry
DX: F25.0 Schizoaffective disorder, bipolar type (principal); R45.851 Suicidal ideations; F60.3 Borderline personality disorder; R47.9 Unspecified speech disturbances; F32.9 Major depressive disorder, single episode, unspecified; T43.596A Underdosing of other antipsychotics and neuroleptics, initial encounter; W22.09XA Striking against other stationary object, initial encounter; Y92.230 Patient room in hospital as the place of occurrence of the external cause; Y99.8 Other external cause status; Z91.128 Patient's intentional underdosing of medication regimen for other reason; Z62.810 Personal history of physical and sexual abuse in childhood; Z59.0 Homelessness; Z81.8 Family history of other mental and behavioral disorders; Z56.0 Unemployment, unspecified
CPT/HCPCS: 36415; 80305; 80320; 80329; 81001; 82040; 82247; 82310; 82374; 82435; 82565; 82947; 83735; 84075; 84132; 84155; 84295; 84443; 84450; 84460; 84520; 85025; 93005; 99282; Q0163